=== PATIENT | female | born 1990 | race Caucasian/White ===

== ENCOUNTER 2017-10-02 22:36 | Emergency (ER) | payer SELFPAY ==
--- NOTE | 2017-10-02 23:37 | EDM.PDOC ---
ED HPI GENERAL MEDICAL PROBLEM - General Chief Complaint: Respiratory Problem Stated Complaint: SOB CONGESTION COUGH FEVER Time Seen by Provider: 10/02/17 23:22 Source of Information: Reports: Patient, Other (Employer) History Limitations: Reports: No Limitations - History of Present Illness INITIAL COMMENTS - FREE TEXT/NARRATIVE: The patient states that she developed a dry cough, occasionally productive of yellow sputum, with chest congestion about 6 days ago. She developed chills and subjective fever, and body aches about 5 days ago. She developed laryngitis 2 days ago, and shortness of breath tonight. She denies having a sore throat, nausea, vomiting, constipation, diarrhea, or urinary symptoms. She states that she has been taking TheraFlu, which helps her sleep, but has not helped her symptoms. 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 One of the children was seen by a neurology physician assistant and diagnosed with an ear infection, but not influenza or other communicable disease. The patient did not receive an influenza vaccine this season. The patient does not have a PCP. Generalized Pain Score (Numeric/FACES): 6 - Related Data Allergies Allergy/AdvReac Type Severity Reaction Status Date / Time No Known Allergies Allergy Verified 10/02/17 22:45 Home Meds: Home Meds . [No Known Home Meds] 10/02/17 [History] Past Medical History Endocrine/Metabolic History: Reports: Obesity/BMI 30+ Social & Family History - Tobacco Use Smoking Status *Q: Current Every Day Smoker Years of Tobacco use: 7 Packs/Tins Daily: 1 - Caffeine Use Caffeine Use: Reports: Coffee, Soda - Alcohol Use Alcohol Use History: Yes Alcohol Use Frequency: Socially - Recreational Drug Use Recreational Drug Use: No - Living Situation & Occupation Living situation: Reports: Single, Other (With employer) Occupation: Employed ([employer]) ED ROS GENERAL - Review of Systems Review Of Systems: ROS reveals no pertinent complaints other than HPI. ED EXAM, GENERAL - Physical Exam Exam: See Below Exam Limited By: No Limitations General Appearance: Alert, WD/WN, No Apparent Distress Eye Exam: Bilateral Eye: Normal Inspection Ears: Normal External Exam, Hearing Grossly Normal Nose: Normal Inspection, No Blood Throat/Mouth: Normal Inspection, Normal Lips, Normal Voice, No Airway Compromise Head: Atraumatic, Normocephalic Neck: Normal Inspection, Full Range of Motion Respiratory/Chest: No Respiratory Distress, Lungs Clear, Normal Breath Sounds, No Accessory Muscle Use. No: Crackles, Rhonchi, Wheezing Cardiovascular: Normal Peripheral Pulses, Regular Rate, Rhythm, No Gallop, No JVD, No Murmur, No Rub Peripheral Pulses: 4+: Radial (L), Radial (R) GI/Abdominal: Normal Bowel Sounds, Soft, Non-Tender, No Organomegaly, No Distention, No Abnormal Bruit, No Mass, Other (Obese) (Female) Exam: Deferred Rectal (Female) Exam: Deferred Back Exam: Normal Inspection, Full Range of Motion Extremities: Normal Inspection, Normal Range of Motion, No Pedal Edema, Normal Capillary Refill Neurological: Alert, Oriented, Normal Cognition, No Motor/Sensory Deficits Psychiatric: Normal Affect Skin Exam: Warm, Dry, Intact, Normal Color, No Rash Course - Vital Signs Last Recorded V/S: Last Vital Signs Temp 35.7 C 10/02/17 22:40 Pulse 102 H 10/02/17 22:40 Resp 20 10/02/17 22:40 BP 171/99 H 10/02/17 22:40 Pulse Ox 99 10/02/17 22:40 - Orders/Labs/Meds Orders: Active Orders 24 hr Category Date Time Status Chest 2V [CR] Stat Exams 10/02/17 23:30 Ordered CULTURE STREP A CONFIRMATION [] Stat Lab 10/02/17 22:50 Results STREP SCRN A RAPID W CULT CONF [] Stat Lab 10/02/17 22:50 Results Labs: Laboratory Tests 10/02/17 10/02/17 Range/Units 23:42 23:42 WBC 14.08 H (3.98-10.04) K/mm3 RBC 4.82 (3.98-5.22) M/mm3 Hgb 14.2 (11.2-15.7) gm/L Hct 42.6 (34.1-44.9) % MCV 88.4 (79.4-94.8) fl MCH 29.5 (25.6-32.2) pg MCHC 33.3 (32.2-35.5) g/dl RDW Std Deviation 43.1 (36.4-46.3) fL Plt Count 339 (182-369) K/mm3 MPV 10.0 (9.4-12.3) fl Neutrophils % (Manual) 51 (40-60) % Band Neutrophils % 0 (0-10) % Lymphocytes % (Manual) 44 H (20-40) % Atypical Lymphs % 0 % Monocytes % (Manual) 3 (2-10) % Eosinophils % (Manual) 1 (0.7-5.8) % Basophils % (Manual) 1 (0.1-1.2) Platelet Estimate Adequate RBC Morph Comment Normal Sodium 139 (136-145) mEq/L Potassium 3.0 L (3.5-5.1) mEq/L Chloride 103 (98-107) mEq/L Carbon Dioxide 25 (21-32) mEq/L Anion Gap 14.0 (5-15) BUN 9 (7-18) mg/dL Creatinine 0.8 (0.55-1.02) mg/dL Est Cr Clr Drug Dosing 89.60 mL/min Estimated GFR (MDRD) > 60 (>60) mL/min BUN/Creatinine Ratio 11.3 L (14-18) Glucose 128 H (74-106) mg/dL Calcium 10.0 (8.5-10.1) mg/dL Total Bilirubin 0.3 (0.2-1.0) mg/dL AST 61 H (15-37) U/L ALT 74 H (14-59) U/L Alkaline Phosphatase 98 (46-116) U/L Total Protein 7.3 (6.4-8.2) g/dl Albumin 3.2 L (3.4-5.0) g/dl Globulin 4.1 gm/dL Albumin/Globulin Ratio 0.8 L (1-2) Meds: Medications Discontinued Medications Generic Name Dose Route Start Last Admin Trade Name Freq PRN Reason Stop Dose Admin Potassium Chloride 40 meq 10/03/17 00:49 Klor-Con M20 PO 10/03/17 00:50 ONETIME ONE - Re-Assessments/Exams Free Text/Narrative Re-Assessment/Exam: 10/02/17 23:57 Two-view chest radiograph appears to be grossly normal. Cardiac silhouette is within normal limits. No pulmonary vascular congestion. No pleural effusions. No focal infiltrate. No pneumothorax. Formal read per the Radiologist pending. 10/03/17 00:52 Test results discussed with the patient and her employer. Today's workup finds a mildly elevated WBC count of 14.08, but with 0% bandemia. Her potassium is depressed at 3.0, for unknown reasons. It is possible this is due to inadequate dietary intake, but could also be due to excessive urinary excretion. For today' s purposes, I have ordered 40 mEq of oral potassium chloride, with the recommendation that she have this checked in follow-up. I will refer the patient to Dr. Julianna Gonzalez. The patient's resenting symptoms are most likely due to a viral URI. Departure - Departure Time of Disposition: 00:54 Disposition: Home, Self-Care 01 Condition: Good Clinical Impression: Viral URI with cough, Hypokalemia - Discharge Information Referrals: PCP,None [Primary Care Provider] - Allegra Gonzalez MD [Physician] - Forms: ED Department Discharge Additional Instructions: You were seen in the emergency room for a cough, chest congestion, chills, body aches, laryngitis, and shortness of breath. Workup in the ER included blood work, an influenza swab, a rapid strep test, and a chest x-ray. Your workup found your potassium to be mildly low at 3.0. You were given oral potassium as a replacement. This should be checked on in follow-up. The remainder of your workup was unremarkable. The cause of your symptoms is MOST LIKELY due to a viral URI, also known as a common cold. Unfortunately, there are no medicines to treat a common cold - it will have to run its course. We do not recommend that you take any [id number] cough or cold remedies. They do not work, but do have side effects. We STRONGLY recommend that you consider quitting smoking. We STRONGLY recommend that you get an influenza vaccine. Follow-up with Dr. Allegra Gonzalez as a primary care physician. If any other problems, please do not hesitate to return to the ER. - My Orders Last 24 Hours: My Active Orders 10/02/17 22:50 CULTURE STREP A CONFIRMATION [RM] Stat STREP SCRN A RAPID W CULT CONF [RM] Stat 10/02/17 23:30 Chest 2V [CR] Stat - Assessment/Plan Last 24 Hours: My Active Orders 10/02/17 22:50 CULTURE STREP A CONFIRMATION [RM] Stat STREP SCRN A RAPID W CULT CONF [RM] Stat 10/02/17 23:30 Chest 2V [CR] Stat
[2017-10-03] MEDS ORDERED: Potassium Chloride 20 MEQ Tab.ER PO ONE (00:49)
--- NOTE | 2017-10-03 15:38 | CR ---
Chest: Two views of the chest were obtained. Comparison: No prior chest x-ray. Heart size and mediastinum are normal. Mild diffuse bronchitis is seen. Lungs otherwise are clear. Bony structures are unremarkable. Impression: 1. Mild diffuse bronchitis Diagnostic code #3
== END 2017-10-03 01:00 | disposition home or self-care (01) ==
LOC: JD.ED 22:36
DX: J06.9 Acute upper respiratory infection, unspecified (principal); E87.6 Hypokalemia; F17.210 Nicotine dependence, cigarettes, uncomplicated
CPT/HCPCS: 36415; 71046; 80053; 85025; 87081; 87430; 87804; 99284; A9270; 99283